=== PATIENT | male | born 1990 | race Two or more races ===

== ENCOUNTER 2018-03-10 07:36 | Observation (INO) | payer MEDICAID ==
[2018-03-10] MEDS ORDERED: HYDROmorphONE/DILAUDID 2 MG/ML INJ IVP ONE (07:55)
[2018-03-10] MEDS ORDERED: NS 1,000 ML IV ONE ×2 (07:55)
[2018-03-10] MEDS ORDERED: ONDANSETRON 4 MG/2 ML VIAL IVP ONE (07:55)
--- NOTE | 2018-03-10 07:56 | EDPHY ---
H & P Time Seen by Provider: 03/10/18 07:44 HPI/ROS: CHIEF COMPLAINT: Left-sided jaw pain and sore throat HISTORY OF PRESENT ILLNESS: 27-year-old man presents the emergency department with 24 hr of left-sided jaw pain and sore throat. Started yesterday with a little bit of pain in the left side of his jaw radiating down into his neck. Worse with trying to open his jaw or chew. The associated decreased oral intake because he has difficulty opening his mouth. No trouble with breathing, painful with swallowing. Normal voice. REVIEW OF SYSTEMS: Eye: no change in vision ENT: HPI no ear symptoms Cardiac: no chest pain or syncope Pulmonary: Had URI symptoms including productive cough and some congestion last week. Abdomen: Crohn's disease stable, has some nausea Musculoskeletal: no back pain Skin: no rash Neuro: Mild headache Constitutional: no fever : no urinary symptoms A comprehensive 10 point review of systems is otherwise negative aside from elements mentioned in the history of present illness. PAST MEDICAL HISTORY: Crohn's disease Social history: Nonsmoker General Appearance: Alert and conversant, cooperative. Eyes: No scleral icterus. ENT, Mouth: Patient has some trismus with ability to open his mouth about 1 cm , some left-sided pharyngeal erythema and swelling but uvula is midline. Normal voice and no stridor or drooling. Normal tympanic membranes. Very minimal tenderness to palpation under the angle of the mandible on the left, no neck masses or swelling. Respiratory: Normal respiratory effort, breath sounds equal, lungs are clear to auscultation. Cardiovascular: Regular rate and rhythm. Gastrointestinal: Abdomen is soft and non tender. Neurological: Alert, face symmetric, normal motor and sensory in extremities. Skin: Warm and dry, no rashes. Musculoskeletal: No peripheral edema. Full range of motion of the neck. Psychiatric: Not agitated. Emergency Department course/MDM: Dilaudid 0.5 and Zofran for and IV normal saline 2 L. I-STAT and CT neck soft tissue to evaluate for deep space infection. Unasyn 3 g IV. 851: Per [place] CT shows edema next to the palatine tonsil but no other deep space abscess or abnormality on the left side. Results discussed with the patient at this time. Still can't swallow. Additional IV Dilaudid, Toradol, dexamethasone, admit hospitalist with ENT consultation. Smoking Status: Never smoked Constitutional: Initial Vital Signs Temperature (C) 36.3 C 03/10/18 07:41 Heart Rate 80 03/10/18 07:41 Respiratory Rate 16 03/10/18 07:41 Blood Pressure 119/73 03/10/18 07:41 O2 Sat (%) 97 03/10/18 07:41 O2 Delivery Mode Room Air Allergies/Adverse Reactions: No Known Allergies Allergy (Verified 03/10/18 07:41) Home Medications: Medication Instructions Recorded Hydrocodone/APAP [[place] 1 - 2 tab PO Q4H PRN 12/08/14325] Medical Decision Making - Diagnostics Imaging Results: Imaging Impressions Neck CT 03/10/18 08:13 Impression: Minimal edema in the parapharyngeal fat lateral to the palatine tonsil. No peritonsillar abscess, fluid collection, or venous thrombosis. Findings discussed with Emergency Department physician, Dr. Richard Dove on March 10, 2018 at 0850 hours. Imaging: Discussed imaging studies w/ churn driller Radiologist Differential Diagnosis: Differential considered including but not limited to retropharyngeal abscess, TMJ, peritonsillar abscess, mumps or parotitis, epiglottitis. Consult/Admit Bed Type: [place] [id number], [facility] 92 - Data Points Laboratory Results: Laboratory Results 03/10/18 07:59 03/10/18 07:59 03/10/18 03/10/18 03/10/18 08:05 07:59 07:59 WBC 7.87 10^3/uL 10^3/uL (3.80-9.50) RBC 5.60 10^6/uL 10^6/uL (4.40-6.38) Hgb 15.2 g/dL g/dL (13.7-17.5) POC Hgb 17.0 gm/dL gm/dL (13.7-17.5) Hct 46.7 % % (40.0-51.0) POC Hct 50 % % (40-51) MCV 83.4 fL fL (81.5-99.8) MCH 27.1 pg L pg (27.9-34.1) MCHC 32.5 g/dL g/dL (32.4-36.7) RDW 13.7 % % (11.5-15.2) Plt Count 179 10^3/uL 10^3/uL (150-400) MPV 10.1 fL fL (8.7-11.7) Neut % (Auto) 67.1 % % (39.3-74.2) Lymph % (Auto) 21.5 % % (15.0-45.0) Bowie % (Auto) 9.7 % % (4.5-13.0) Eos % (Auto) 1.1 % % (0.6-7.6) Baso % (Auto) 0.5 % % (0.3-1.7) Nucleat RBC Rel Count 0.0 % % (0.0-0.2) Absolute Neuts (auto) 5.28 10^3/uL 10^3/uL (1.70-6.50) Absolute Lymphs (auto) 1.69 10^3/uL 10^3/uL (1.00-3.00) Absolute Monos (auto) 0.76 10^3/uL 10^3/uL (0.30-0.80) Absolute Eos (auto) 0.09 10^3/uL 10^3/uL (0.03-0.40) Absolute Basos (auto) 0.04 10^3/uL 10^3/uL (0.02-0.10) Absolute Nucleated RBC 0.00 10^3/uL 10^3/uL (0-0.01) Immature Gran % 0.1 % % (0.0-1.1) Immature Gran # 0.01 10^3/uL 10^3/uL (0.00-0.10) POC Sodium 142 mEq/L mEq/L (135-145) Sodium 139 mEq/L mEq/L (135-145) POC Potassium 3.8 mEq/L mEq/L (3.3-5.0) Potassium 4.0 mEq/L mEq/L (3.5-5.2) POC Chloride 102 mEq/L mEq/L (97-110) Chloride 105 mEq/L mEq/L (97-110) Carbon Dioxide 26 mEq/l mEq/l (22-31) POC Total CO2 25 mEq/L mEq/L (22-31) Anion Gap 8 mEq/L mEq/L (6-14) POC BUN 12 mg/dL mg/dL (7-23) BUN 13 mg/dL mg/dL (7-23) Creatinine 0.9 mg/dL mg/dL (0.7-1.3) POC Creatinine 1.0 mg/dL mg/dL (0.7-1.3) Estimated GFR > 60 Glucose 90 mg/dL mg/dL (70-100) POC Glucose 90 mg/dL mg/dL (70-100) Calcium 9.1 mg/dL mg/dL (8.5-10.4) Medications Given: Discontinued Medications Dexamethasone (Decadron Injection) 10 mg IVP EDNOW ONE Stop: 03/10/18 09:08 Last Admin: 03/10/18 09:11 Dose: 10 mg Hydromorphone HCl (Dilaudid) 0.5 mg IVP EDNOW ONE Stop: 03/10/18 07:56 Last Admin: 03/10/18 08:11 Dose: 0.5 mg Sodium Chloride (Ns) 1,000 mls @ 0 mls/hr IV EDNOW ONE; Wide Open PRN Reason: Protocol Stop: 03/10/18 07:56 Last Admin: 03/10/18 08:07 Dose: 1,000 mls Sodium Chloride (Ns) 1,000 mls @ 0 mls/hr IV EDNOW ONE; Wide Open PRN Reason: Protocol Stop: 03/10/18 07:56 Last Admin: 03/10/18 08:07 Dose: 1,000 mls Ampicillin Sodium/Sulbactam (Sodium 3 gm/ Sodium Chloride) 100 mls @ 200 mls/ hr IV EDNOW ONE PRN Reason: Protocol Stop: 03/10/18 08:42 Last Admin: 03/10/18 09:07 Dose: 100 mls Ketorolac Tromethamine (Toradol) 15 mg IVP EDNOW ONE Stop: 03/10/18 09:08 Last Admin: 03/10/18 09:11 Dose: 15 mg Ondansetron HCl (Zofran) 4 mg IVP EDNOW ONE Stop: 03/10/18 07:56 Last Admin: 03/10/18 08:08 Dose: 4 mg Point of Care Test Results: Chemistry 03/10/18 08:05 POC Sodium 142 mEq/L mEq/L (135-145) POC Potassium 3.8 mEq/L mEq/L (3.3-5.0) POC Chloride 102 mEq/L mEq/L (97-110) POC Total CO2 25 mEq/L mEq/L (22-31) POC BUN 12 mg/dL mg/dL (7-23) POC Creatinine 1.0 mg/dL mg/dL (0.7-1.3) POC Glucose 90 mg/dL mg/dL (70-100) ISTAT H&H 03/10/18 08:05 POC Hgb 17.0 gm/dL gm/dL (13.7-17.5) POC Hct 50 % % (40-51) Departure - Departure Disposition: [facility] Inpatient Acute Clinical Impression: Acute pharyngitis Condition: Good Referrals: Daniel Hicks MD [Medical Doctor] - As per Instructions
[2018-03-10 08:10] LABS: PLATELET COUNT 179 10^3/uL (150-400)
[2018-03-10] MEDS ORDERED: AMPICILLIN/SULBACTAM 3 GM in NS 100 ML IV ONE (08:13)
[2018-03-10] MEDS ORDERED: IOHEXOL 300 mgI/ML (OMNIPAQUE) 150 ML BTL IV ONE (08:22)
[2018-03-10] MEDS ORDERED: KETOROLAC 30 MG/1 ML SDV IVP ONE (09:07)
[2018-03-10] MEDS ORDERED: DEXAMETHASONE 10 MG/ML VIAL IVP ONE (09:07)
[2018-03-10] MEDS ORDERED: ONDANSETRON 4 MG/2 ML VIAL IVP PRN (13:03)
[2018-03-10] MEDS ORDERED: ACETAMINOPHEN 325 MG TAB PO PRN (13:03)
[2018-03-10] MEDS ORDERED: ONDANSETRON DISINTEGRATING 4 MG TAB PO PRN (13:03)
[2018-03-10] MEDS ORDERED: DEXAMETHASONE 4 MG/ML VIAL IVP SCH (13:15)
--- NOTE | 2018-03-10 13:36 | GHP ---
[f rep st] HISTORY AND PHYSICAL DATE OF ADMISSION: 03/10/2018 CHIEF COMPLAINT: Difficulty swallowing. HISTORY OF PRESENT ILLNESS: This is a 27-year-old male with a history of Crohn's, who presents with difficulty swallowing. This started yesterday, worsened throughout the day until it was very severe last night. He describes pain in the left side of his neck/lower jaw, worse with chewing, as well as swallowing. It got to the point where he has been unable to swallow his saliva. Thus, he spitting it back up into a cup. He has never had anything like this before. He has not had any fevers. Nobo dy else is sick like this around him. He did not describe actually a sore throat. It seems to be mo re related to muscular, as it is also worse when he tilts his head to the left. He received some IV steroids, as well as antibiotics in the ED and is feeling improved. He is still barely able to open his mouth; however, it is improved from prior. He reports no difficulty with breathing. PAST MEDICAL/SURGICAL HISTORY: Crohn disease, currently diet controlled. MEDICATIONS: Please see medication reconciliation. ALLERGIES: No known drug allergies. SOCIAL HISTORY: He does not drink or smoke. FAMILY HISTORY: No Crohn disease. REVIEW OF SYSTEMS: A 10-point review of systems is conducted and is negative except per HPI. PHYSICAL EXAM: VITAL SIGNS: Blood pressure is 112/72, heart rate 63, respiration rate 18, saturatin g 95% on room air. Temperature is 36.3. GENERAL: The patient is a pleasant man who is resting comf ortably in no acute distress. HEENT: Shows him to barely be able open his mouth. He has no erythem a over the lateral aspect of his neck. He has no significant lymphadenopathy. He is mildly tender t o palpation over the left side of his neck just below the mandibular angle. CARDIOVASCULAR: Exam sh ows a regular rate and rhythm. No murmurs, rubs, or gallops. PULMONARY: Lungs are clear to auscult ation bilaterally. He has no stridor. ABDOMEN: Abdominal exam is soft, nontender and nondistended. SKIN: Exam shows no rash. : Exam shows no Hickman. NEUROLOGIC: Exam shows him to be alert and oriented x3. He is moving all extremities. PSYCHIATRIC: Exam shows normal mood and affect. LABORATORY DATA: CBC is normal. Basic metabolic panel is normal. DATA: 1. CT scan of his neck soft tissue shows mild edema in the parapharyngeal fat lateral to the palatin e tonsil with no abscess, fluid collection or venous thrombosis. 2. I discussed this with Dr. Hicks. He will consult. IMPRESSION AND PLAN: Inflammation in the parapharyngeal space: Much improved with antibiotics, as w ell as steroids. We will continue these. Dr. Hicks will eval, though he does not plan any surgical interventions. I will allow him to eat. We will follow his clinical course. He may be ready for d ischarge if his pain is better controlled and he is able to tolerate p.o. Fortunately, he is having no respiratory compromise from this. This is a high-risk diagnosis given the concern for potential r espiratory compromise if this worsens. /[id number]/MODL
[2018-03-10 15:40] VITALS: BP 118/66
[2018-03-10] MEDS ORDERED: AMPICILLIN/SULBACTAM 1.5 GM in NS 50 ML IV SCH (18:00)
--- NOTE | 2018-03-10 19:02 | GDS ---
[f rep st] DISCHARGE SUMMARY FINAL DIAGNOSES: 1. Parapharyngeal fat edema with difficulty swallowing. 2. History of Crohn disease not currently on medications. HOSPITAL COURSE: This is a 27-year-old man who developed relatively rapid onset of difficulty swallo wing. CT scan of his neck showed some parapharyngeal fat edema with no phlegmon or abscess. He was treated with IV antibiotics as well as IV steroids with significant improvement. He was seen by Dr. Hicks with ENT who agrees with the management. After his treatment, he has been able the eat dinner , and he believes that he will be able to keep himself hydrated. I think it is reasonable to dischar ge him as he is having no breathing compromise and able to eat at this point. I have given him a tot al of 10 days of Augmentin as well as an additional 2 days of steroids to take. I have given him str ict return precautions. He may follow up with Dr. Hicks with ENT as needed. He is otherwise discha [facility] in stable condition. /[id number]/MODL
--- NOTE | 2018-03-11 04:43 | GCON ---
[f rep st] CONSULTATION DATE OF CONSULTATION: 03/10/2018 CHIEF COMPLAINT: Sore throat. HISTORY OF PRESENT ILLNESS: This is a 27-year-old male who brought himself to the emergency room for sore throat and difficulty swallowing. This started yesterday and increased in severity through night and today. He describes pain on the left neck with sore throat, odynophagia, and pain with j aw movement. He received antibiotics and steroids in the emergency room and following these, he feel s somewhat better. He has yet to undergo a food trial. He denied fever, nausea, difficulty breathin g, voice change. PAST MEDICAL HISTORY: Crohn disease. MEDICATIONS: Reviewed. ALLERGIES: No known drug allergy. SOCIAL HISTORY: No alcohol, no tobacco. FAMILY HISTORY: Noncontributory. REVIEW OF SYSTEMS: Negative but for that in the HPI. PHYSICAL EXAM: VITAL SIGNS: Blood pressure 112/72, heart rate 63, O2 saturation 98% on room air, te mperature 36.6 degrees centigrade. GENERAL: Alert, interactive, no acute distress. HEAD and FACE: Normocephalic, atraumatic with generally symmetric facial features. EARS: Bilateral pinnae and can als are nontender and not erythematous. No obvious otorrhea. EYES: EOMI. NOSE: Normally formed, generally straight. Unremarkable anterior rhinoscopy. ORAL CAVITY/OROPHARYNX: Unremarkable dentiti on, gingiva, and buccal mucosa. Elongated soft palate and moderate trismus with a 0.5 cm opening. S oft palate is not erythematous and nonedematous. Tonsillar fossa were difficult to visualize given t rismus, but there was no evidence of erythema or fullness. NECK: Supple without palpable mass or ad enopathy. Mild tenderness to palpation at the left. NEURO: Cranial nerves 2-12 appear intact. LABORATORY: Unremarkable CBC. White count normal. IMAGING: I reviewed the CT scan images and radiology read with the patient. I agree with radiology read that there is no evidence of airway compromise and no significant mass effect at the left side. There does appear to be mild asymmetry with some fullness in posterior pharyngeal tissues on the lef t. No evidence of abscess. ASSESSMENT/PLAN: Sore throat with parapharyngeal inflammation seen on CT. Significant subjective im provement with antibiotics and steroids. He is tolerating his secretions and liquids at this point. He will undergo a p.o. trial. The patient and I discussed that should he tolerate p.o. intake, he m ay be appropriate for going home today. I see no need for operative intervention at this time. Jolly velez recommend continuing with either clindamycin or Augmentin. Follow up with me as outpatient if symp toms persist beyond the time of antibiotic usage. /[id number]/MODL
== END 2018-03-10 17:52 | disposition home or self-care (01) ==
LOC: F3E 11:26
PROVIDERS: ADMIT Student in an Organized Health Care Education/Training Program; ATTEND Student in an Organized Health Care Education/Training Program
DX: J02.9 Acute pharyngitis, unspecified (principal); R60.9 Edema, unspecified; E86.9 Volume depletion, unspecified; K50.90 Crohn's disease, unspecified, without complications
CPT/HCPCS: 70491; 96361; 96374; 96375; 96376; 99285; G0378; 82435-PO; 82565-PO; 82947-PO; 84132-PO; 84295-PO; 84520-PO; 85014-ER; J0295; J1100; J1170; J1885; J2405; Q9967

== ENCOUNTER 2018-04-27 15:52 | Emergency (ER) | payer MEDICAID ==
--- NOTE | 2018-04-27 16:48 | EDPHY ---
H & P Time Seen by Provider: 04/27/18 16:10 HPI/ROS: CHIEF COMPLAINT: "I think I pulled something" HISTORY OF PRESENT ILLNESS: 27-year-old male complaining of left proximal a posterior pain when he was dancing yesterday. 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 He is able to bear weight albeit with pain. Reproducible pain with range of motion. No direct trauma or fall. PRIMARY CARE PROVIDER: REVIEW OF SYSTEMS: 10 systems reviewed and are negative with exception of illness mentioned in the history of present illness PHYSICAL EXAM (Prior to examination, patient consented to physical exam, hands were washed and my usual and customary physical exam procedures followed) 1) GENERAL: Well-developed, well-nourished, alert and oriented. Appears to be in no acute distress. 2) HEAD: Normocephalic 3) HEENT: sclera anicteric 4) LUNGS: Breathing comfortably. 5) SKIN: Intact. No skin changes to the left lower extremity 6) MUSCULOSKELETAL: Tender to palpation proximal posterior thigh reproducible with range of motion. He is able to hold flexion at the knee against resistance albeit with pain. No weakness or footdrop distally. DP PT pulses present and brisk with brisk capillary refill. Soft compartments throughout. No crepitus. Smoking Status: Never smoked Constitutional: Initial Vital Signs Temperature (C) 36.8 C 04/27/18 16:00 Heart Rate 67 04/27/18 16:00 Blood Pressure 121/78 H 04/27/18 16:00 O2 Sat (%) 98 04/27/18 16:00 O2 Delivery Mode Room Air Allergies/Adverse Reactions: No Known Allergies Allergy (Verified 03/10/18 07:41) Home Medications: Medication Instructions Recorded Amoxicillin/Clavulanate Pot 875 mg PO BID #18 tab 03/10/18 [Augmentin 875 MG TAB (*)] Dexamethasone [Decadron 2 MG (*)] 2 mg PO BID PRN #20 tab 03/10/18 Cyclobenzaprine [Flexeril 10 MG 10 mg PO TID #15 tab 04/27/18 (RX)] MDM/Departure - MDM Imaging Results: Imaging Impressions Hip X-Ray 04/27/18 16:41 Impression: No acute osseous abnormality. Images reviewed myself ED Course/Re-evaluation: X-rays obtained on this patient showing no osseous abnormality. Discussed with patient limitations of x-ray. This time I do not think that emergent MRI is indicated. He has been given crutches, recommend follow up with Orthopedics on- call Dr. Kavin Leon, ibuprofen and Tylenol for discomfort. Cold packs. - Depart Disposition: Home, Routine, Self-Care Clinical Impression: Muscle strain of left thigh Qualifiers: Encounter type: initial encounter Qualified Code(s): S76.912A - Strain of unspecified muscles, fascia and tendons at thigh level, left thigh, initial encounter Condition: Good Instructions: Muscle Strain (ED) Additional Instructions: Return to the ER immediately if you experience discoloration, have worsening pain, numbness, tingling, or any other symptoms that concern you. If you received x-rays in the emergency department today, be advised, that ligamentous , tendon, muscular, and other non-bony injury cannot be fully ruled out. [Try to keep your affected extremity elevated above the level of your chest, and keep cold packs on the affected area, for the next 48 hours.] Adult Pain & Fever Control: We recommend Acetaminophen (Tylenol) and Ibuprofen (Motrin,Advil) for pain and fever control. When fever is high or pain severe, both drugs can be used at the same time, but at different intervals. Please note the time differences. Your dose is: Acetaminophen [650]mg every 4 to 6 hours Ibuprofen 600mg every 6 hours with food OR Note: do not take Acetaminophen with Hydrocodone (Vicodin, Lortab) or Oycodone (Percocet). These medications also contain Acetaminophen. No more than 3000mg of Acetaminophen should be taken in 24 hours (for an adult). Prescriptions: Cyclobenzaprine [Flexeril 10 MG (RX)] 10 mg PO TID #15 tab Referrals: Kavin Leon MD [Medical Doctor] - 2-3 days, call for appt.
[2018-04-27 17:27] VITALS: BP 126/76
== END 2018-04-27 17:25 | disposition home or self-care (01) ==
DX: S76.902A Unspecified injury of unspecified muscles, fascia and tendons at thigh level, left thigh, initial encounter (principal); X50.1XXA Overexertion from prolonged static or awkward postures, initial encounter; Y99.9 Unspecified external cause status